=== PATIENT | female | born 1930 | race Caucasian/White ===

== ENCOUNTER 2017-02-19 22:57 | Inpatient (IN) | payer MEDICARE, OTHER ==
[~2017-02-19] VITALS: Ht 172.7 cm; Wt 70.8 kg
--- NOTE | 2017-02-19 23:45 | NUR ---
MS RN NOTES: RECEIVED PATIENT FROM [facility] VIA GURNEY FROM collections specialist. 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 PICTURES WERE TAKEN AND PUT IN CHART. PT A/O X4. PT KEPT CLEAN, DRY, AND COMFORTABLE. MEPILEX WAS CHANGED. DIAPER WAS CHANGED. PT HAS IV ON RIGHT AC #20. IV PATENT AND INTACT. BED IN LOCKED, LOWEST POSITION, AND SIDE RAILS X2 UP.
[2017-02-20] MEDS ORDERED: ALBU8.5H2 INH (01:12)
[2017-02-20] MEDS ORDERED: POTA20TA83 PO (01:12)
[2017-02-20] MEDS ORDERED: LOSA25TA3 PO (01:12)
[2017-02-20] MEDS ORDERED: OMEP40CA37 PO (01:12)
[2017-02-20] MEDS ORDERED: ATOR40TA PO (01:12)
[2017-02-20] MEDS ORDERED: PRAM0.253 PO (01:12)
[2017-02-20] MEDS ORDERED: FURO-144 PO (01:12)
[2017-02-20] MEDS ORDERED: FOLI1TAB16 PO (01:12)
[2017-02-20] MEDS ORDERED: NORT50CA PO (01:12)
[2017-02-20] MEDS ORDERED: ALEN70TA3 PO (01:12)
[2017-02-20] MEDS ORDERED: TEMA15CA PO (01:12)
[2017-02-20] MEDS ORDERED: LOPE-156 PO (01:12)
[2017-02-20] MEDS ORDERED: FERR-58 PO (01:12)
[2017-02-20] MEDS ORDERED: CALC500T3 PO (01:12)
[2017-02-20] MEDS ORDERED: ASPI81TA2 PO (01:12)
[2017-02-20] MEDS ORDERED: GABA-534 PO (01:12)
[2017-02-20] MEDS ORDERED: CARV3.12 PO (01:12)
[2017-02-20] MEDS: NORTRIPTYLINE HCL 25 MG CAPSULE PO SCH ×3 (01:53→22:47)
[2017-02-20] MEDS ORDERED: ACETAMINOPHEN 325 MG TABLET PO PRN (02:00)
[2017-02-20] MEDS ORDERED: Z GUARD REMEDY 2 OZ OINT TP PRN (02:00)
[2017-02-20] MEDS ORDERED: MAGNESIUM HYDROXIDE 30 ML UDC PO PRN (02:00)
[2017-02-20] MEDS ORDERED: MAG HYDROX/AL HYDROX/SIMETH 30 ML UDC PO PRN (02:00)
[2017-02-20] MEDS ORDERED: ONDANSETRON HCL/PF 4 MG/2 ML VIAL IVP PRN (02:00)
[2017-02-20] MEDS ORDERED: ZOLPIDEM TARTRATE 5 MG TABLET PO PRN (02:00)
[2017-02-20] MEDS ORDERED: CEFTRIAXONE 1 G VIAL ONE (02:06)
[2017-02-20] MEDS ORDERED: IV D5W 50 ML IV ONE (02:07)
[2017-02-20] MEDS ORDERED: SECONDARY IV SET 1 EA INFUS.SET MC ONE ×2 (02:08→03:46)
[2017-02-20] MEDS ORDERED: IV SET PRIMARY PUMP SET 1 EA INFUS.SET MC ONE (02:09)
[2017-02-20] MEDS: TEMAZEPAM 15 MG CAPSULE PO SCH ×2 (02:16→22:00)
[2017-02-20] MEDS ORDERED: IV NS 0.9% 250 ML IV ONE (02:33)
[2017-02-20] MEDS: CEFTRIAXONE 1 G in IV D5W 50 ML IV SCH (02:44)
[2017-02-20] MEDS ORDERED: VANCOMYCIN 1 GM VIAL ONE (03:25)
[2017-02-20] MEDS ORDERED: IV D5W 250 ML IV ONE (03:26)
[2017-02-20] MEDS ORDERED: HYDROCODONE/APAP 5/325MG 1 EACH TABLET ONE (03:27)
[2017-02-20] MEDS ORDERED: VANCOMYCIN 1 GM in IV D5W 250 ML IV ONE (03:30)
[2017-02-20] MEDS: HYDROCODONE/APAP 5/325MG 1 EACH TABLET PO PRN ×2 (03:51→10:02)
--- NOTE | 2017-02-20 03:51 | NUR ---
MS RN NOTES: PATIENT COMPLAINED OF R FOOT PAIN. PATIENT RECEIVED NORCO 5/325MG PO. WILL CONTINUE TO MONITOR PT.
[2017-02-20 05:37] VITALS: BP 136/74
--- NOTE | 2017-02-20 06:35 | NUR ---
MS RN CLOSING NOTES: PATIENT IN BED ASLEEP. PT KEPT CLEAN, DRY, AND COMFORTABLE. PT HAS IV ON RAC #20 AND IS PATENT AND INTACT. PATIENT KEPT IN LOWEST, LOCKED POSITION, AND SIDE RAILS X2 UP. CALL LIGHT WITHIN PT REACH. WILL ENDORSE TO DAY SHIFT NURSE.
[2017-02-20 06:52] LABS: BASOPHILS % (AUTO) 0.4 % (0.0-2.0); EOSINOPHILS # (AUTO) 0.3 /CMM (0.0-0.7); EOSINOPHILS % (AUTO) 4.6 % (0.0-6.0); HEMATOCRIT 32 % (33-45); HEMOGLOBIN 10.3 g/dL (11.5-14.8); LYMPHOCYTES # (AUTO) 1.5 /CMM (0.8-4.8); MEAN CORPUSCULAR HEMOGLOBIN 31 PG (26.0-33.0); MEAN CORPUSCULAR HGB CONC 33 g/dl (31.0-36.0); MEAN CORPUSCULAR VOLUME 95 fL (82-100); MONOCYTES # (AUTO) 1.3 /CMM (0.1-1.30); MONOCYTES % (AUTO) 17.6 % (2.0-12.0); NEUTROPHILS # (AUTO) 4.2 /CMM (1.8-8.9); NEUTROPHILS % (AUTO) 57.4 % (43.0-81.0); PLATELET COUNT (AUTO) 220 /CMM (150-450); RDW COEFFICIENT OF VARIATION 16.4 (11.5-15.0); RED BLOOD CELL COUNT(AUTO) 3.31 MIL/uL (4.0-5.2); WHITE BLOOD COUNT (AUTO) 7.4 K/uL (4.3-11.0)
[2017-02-20 07:08] LABS: CALCIUM, SERUM 8.9 mg/dL (8.5-10.1); CREATININE 0.9 mg/dL (0.6-1.3); PHOSPHORUS 2.9 mg/dL (2.5-4.9); POTASSIUM 4.1 mmol/L (3.5-5.1)
[2017-02-20 08:00] VITALS: BP 128/77
--- NOTE | 2017-02-20 08:13 | NUR ---
RN AM NOTES RECEIVED PATIENT IN BED ASLEEP, BUT EASILY AROUSABLE. PATIENT STATES "LEAVE ME ALONE, I DID NOT GET TO SLEEP UNTIL 4 AM." PULLED OUT IV, REFUSES AM CARE, REFUSES PUTTING BACK OF PIV, REFUSES WOUND CARE NURSE CONSULT. WILL CONTINUE TO MONITOR AND TRY TO OFFER CARE LATER THIS AM WHEN PATIENT IS MORE AWAKE.
[2017-02-20 08:37] LABS: BAND % (MANUAL) 2 % (0.0-5.0); EOSINOPHILS % (MANUAL) 5 % (0-4); LYMPHOCYTES % (MANUAL) 21 % (16-48); MONOCYTES % (MANUAL) 3 % (0-11.0); NEUTROPHILS % (MANUAL) 69 (42-76); PLATELET ESTIMATE ADEQUATE
[2017-02-20 08:38] LABS: ANISOCYTOSIS 1+
[2017-02-20] MEDS ORDERED: ALENDRONATE 70 MG TABLET PO SCH (09:00)
[2017-02-20] MEDS ORDERED: ALBUTEROL SULFATE 8 GM HFA.AER.AD IH SCH (09:00)
[2017-02-20] MEDS ORDERED: FEE PK DOSING 1 MIN EA MC ONE (09:05)
--- NOTE | 2017-02-20 11:47 | NUR ---
WOUND CARE CONSULT: PATIENT SEEN AND SKIN ASSESSMENT DONE. PATIENT ALERT, ORIENTED, UNABLE TO TURN AND REPOSITION SELF WITHOUT ASSIST AND PROMPTING, INCONTINENT, LANETTE 13, FIRST STEP MATTRESS ORDERED BY MD. SEE TODAY'S SKIN ASSESSMENT IN PCS ALONG WITH RECOMMENDATIONS. RECOMMEND MOISTURE PROTECTION WITH Z GUARD ORDERED. TURN AND REPOSITION EVERY 2 HRS PATIENT CONDITION PERMITS, OFFLOAD BOTH HEELS. ALL DISCUSSED WITH NURSING STAFF. MD IN AGREEMENT WITH PLAN OF CARE. Addendum: 02/20/17 at 1155 by FLAVIA SPICER WNDNU Amended: Links added.
[2017-02-20] MEDS: FOLIC ACID 1 MG TABLET PO SCH ×3 (12:26→17:06)
[2017-02-20] MEDS: PRAMIPEXOLE DI-HCL 0.25 MG TABLET PO SCH (12:26)
[2017-02-20] MEDS: ATORVASTATIN 40 MG TABLET PO SCH (12:26)
[2017-02-20] MEDS: GABAPENTIN 300 MG CAPSULE PO SCH ×3 (12:26→17:06)
[2017-02-20] MEDS: ASPIRIN 81 MG TAB.CHEW PO SCH (12:26)
[2017-02-20] MEDS: POTASSIUM CHLORIDE 20 MEQ TAB.PRT.SR PO SCH ×2 (12:26→17:05)
[2017-02-20] MEDS: FERROUS SULFATE (325 MG) 325 MG/TAB TABLET PO SCH ×2 (12:26→17:05)
[2017-02-20] MEDS: LOSARTAN POTASSIUM 25 MG TABLET PO SCH (12:27)
[2017-02-20] MEDS: PANTOPRAZOLE 40 MG TABLET.DR PO SCH (12:27)
[2017-02-20] MEDS: CALCIUM CARBONATE (1250) 500 MG TABLET PO SCH (12:27)
[2017-02-20] MEDS: CARVEDILOL 3.125 MG TABLET PO SCH ×2 (12:28→17:06)
[2017-02-20] MEDS ORDERED: METHADONE HCL 10 MG TABLET PO SCH (14:00)
--- NOTE | 2017-02-20 14:00 | NUR ---
METHADONE GIVEN ORDERED. PATIENT WRISTBAND WET, NOT SCANNING. TRIED TWICE.
[2017-02-20 16:00] VITALS: BP 124/78
[2017-02-20] MEDS ORDERED: LIDOCAINE 1%-EPI 1:100,000 20 ML VIAL TP ONE (16:00)
[2017-02-20] MEDS ORDERED: SILVER NITRATE APPLICATOR 1 EA BOX TP ONE (16:00)
[2017-02-20] MEDS: FUROSEMIDE 40 MG TABLET PO SCH (17:06)
--- NOTE | 2017-02-20 18:37 | NUR ---
RN PM NOTES PATIENT ABLE TO TOLERATE TRANSFERRING FROM CHAIR WITH ASSISTANCE, AND REPOSITIONING IN BED WITH ASSISTANCE. CONSENT FOR WOUND DEBRIDEMENT SIGNED AND IN CHART. PATIENT IN BED RESTING, BUT AROUSABLE, ALERT AND ORIENTED X4. WOUND CARE RENDERED. ALL NEEDS MET. WILL ENDORSE TO NEXT SHIFT.
--- NOTE | 2017-02-20 19:50 | NUR ---
RN OPENING NOTES RECEIVED REPORT FROM PAULNDAHMET RNHOPE. FOUND Pt SLEEPING IN BED. NO S/S OF ACUTE DISTRESS OR SOB NOTED. EVEN CHEST RISE AND FALL. NO SIGNS OF PAIN NOTED. IV ACCESS ON LFA #22G, SL. SAFETY MEASURES IN PLACE. BED LOW, LOCKED, HOB ELEVATED, SIDE RAILS UP, CALL LIGHT AND BEDSIDE TABLE WITHIN REACH. WILL CONTINUE TO MONITOR Pt THROUGHOUT THE NIGHT FOR SAFETY.
[2017-02-20 21:04] VITALS: BP 108/59
[2017-02-20] MEDS: VANCOMYCIN 1 GM in IV D5W 250 ML IV SCH (22:41)
[2017-02-20] MEDS: METHADONE HCL 10 MG TABLET PO SCH (22:46)
--- NOTE | 2017-02-21 | NUR ---
RN NOTES LFA #22G IV ACCESS INFILTRATED. STARED A NEW IV ACCESS ON R WRIST #22G, FLUSHING WELL.
[2017-02-21] MEDS ORDERED: SECONDARY IV SET 1 EA INFUS.SET MC ONE (02:29)
[2017-02-21] MEDS: CEFTRIAXONE 1 G in IV D5W 50 ML IV SCH (02:58)
--- NOTE | 2017-02-21 06:55 | NUR ---
RN CLOSING NOTES NO SIGNIFICANT CHANGES DURING THE SHIFT. NO S/S OF ACUTE DISTRESS OR SOB NOTED. ALL NEEDS MET AND ATTENDED TO. SAFETY MEASURES IN PLACE. WILL ENDORSE TO DAYSHIFT RN, FOR Pt's OLEGARIO
--- NOTE | 2017-02-21 07:30 | NUR ---
RECEIVED PT. ALERT AND ORIENTED X 4,COOK SAUCE LIGHT RENUKA.
[2017-02-21 07:59] LABS: BASOPHILS % (AUTO) 0.3 % (0.0-2.0); EOSINOPHILS # (AUTO) 0.4 /CMM (0.0-0.7); EOSINOPHILS % (AUTO) 5.1 % (0.0-6.0); HEMATOCRIT 31 % (33-45); HEMOGLOBIN 10.1 g/dL (11.5-14.8); LYMPHOCYTES # (AUTO) 1.2 /CMM (0.8-4.8); LYMPHOCYTES % (AUTO) 17.3 % (20.0-44.0); MEAN CORPUSCULAR HEMOGLOBIN 31 PG (26.0-33.0); MEAN CORPUSCULAR HGB CONC 32 g/dl (31.0-36.0); MEAN CORPUSCULAR VOLUME 96 fL (82-100); MONOCYTES % (AUTO) 14.8 % (2.0-12.0); NEUTROPHILS # (AUTO) 4.4 /CMM (1.8-8.9); NEUTROPHILS % (AUTO) 62.5 % (43.0-81.0); PLATELET COUNT (AUTO) 221 /CMM (150-450); RDW COEFFICIENT OF VARIATION 16.5 (11.5-15.0); RED BLOOD CELL COUNT(AUTO) 3.27 MIL/uL (4.0-5.2); WHITE BLOOD COUNT (AUTO) 7.1 K/uL (4.3-11.0)
[2017-02-21 08:00] VITALS: BP 150/80
[2017-02-21 08:15] LABS: CALCIUM, SERUM 9.1 mg/dL (8.5-10.1); CREATININE 0.9 mg/dL (0.6-1.3); PHOSPHORUS 3.3 mg/dL (2.5-4.9); POTASSIUM 4.8 mmol/L (3.5-5.1)
[2017-02-21] MEDS: NYSTATIN TOP POWDER 15 GM BOTTLE TP SCH ×2 (09:00→18:14)
[2017-02-21] MEDS: HYDROGEL DRESSING 90 GM TUBE TP SCH (09:00)
[2017-02-21] MEDS: FUROSEMIDE 40 MG TABLET PO SCH ×2 (09:06→18:12)
[2017-02-21] MEDS: FOLIC ACID 1 MG TABLET PO SCH ×3 (09:06→18:13)
[2017-02-21] MEDS: CARVEDILOL 3.125 MG TABLET PO SCH ×2 (09:07→17:00)
[2017-02-21] MEDS: LOSARTAN POTASSIUM 25 MG TABLET PO SCH (09:07)
[2017-02-21] MEDS: ASPIRIN 81 MG TAB.CHEW PO SCH (09:07)
[2017-02-21] MEDS: CALCIUM CARBONATE (1250) 500 MG TABLET PO SCH (09:07)
[2017-02-21] MEDS: ATORVASTATIN 40 MG TABLET PO SCH (09:07)
[2017-02-21] MEDS: POTASSIUM CHLORIDE 20 MEQ TAB.PRT.SR PO SCH ×2 (09:07→18:12)
[2017-02-21] MEDS: METHADONE HCL 10 MG TABLET PO SCH ×3 (09:11→18:12)
[2017-02-21] MEDS: FERROUS SULFATE (325 MG) 325 MG/TAB TABLET PO SCH ×2 (09:11→18:13)
[2017-02-21] MEDS: PRAMIPEXOLE DI-HCL 0.25 MG TABLET PO SCH (09:12)
[2017-02-21] MEDS: GABAPENTIN 300 MG CAPSULE PO SCH ×3 (09:12→18:11)
[2017-02-21] MEDS: PANTOPRAZOLE 40 MG TABLET.DR PO SCH (09:14)
--- NOTE | 2017-02-21 10:40 | NUR ---
DIRECTOR OF CREATIVE SERVICES IN AND DEBRIDEMENT DONE ON BUTTOCKS.PT. TOLERATED WELL.
[2017-02-21] MEDS ORDERED: MENTHOL/CETYLPYRD (CEPACOL) 1 LOZ LOZENGE PO PRN (11:00)
--- NOTE | 2017-02-21 14:30 | NUR ---
UP IN CHAIR AT BEDSIDE,PTX IN TO SEE PT.
[2017-02-21 16:00] VITALS: BP 105/71
[2017-02-21] MEDS: VANCOMYCIN 1 GM in IV D5W 250 ML IV SCH (17:10)
--- NOTE | 2017-02-21 18:00 | NUR ---
DOING WELL WITH METHADONE PAIN MED,
--- NOTE | 2017-02-21 19:30 | NUR ---
RN OPEN NOTES RECEIVED PATIENT AWAKE IN BED. A/O X3. NO SIGNS OF DISTRESS OR DISCOMFORT. BREATHING EVEN AND UNLABORED. ON 2 LPM O2 VIA NC. IV ACCESS IN RIGHT WRIST, PATENT AND INTACT, NO SIGNS OF REDNESS OR INFILTRATION. BED IN LOW LOCKED POSITION WITH SIDE RAILS X2. CALL LIGHT WITHIN REACH. WILL CONTINUE TO MONITOR.
[2017-02-21 20:00] VITALS: BP 115/80
[2017-02-21] MEDS: TEMAZEPAM 15 MG CAPSULE PO SCH (22:20)
[2017-02-22] MEDS: CEFTRIAXONE 1 G in IV D5W 50 ML IV SCH (01:55)
--- NOTE | 2017-02-22 07:15 | NUR ---
RN CLOSING NOTES PATIENT AWAKE IN BED. A/O X3. NO SIGNS OF DISTRESS OR DISCOMFORT. BREATHING EVEN AND UNLABORED. ON 2 LPM O2 VIA NC. IV ACCESS IN RIGHT WRIST, PATENT AND INTACT, NO SIGNS OF REDNESS OR INFILTRATION. PATIENT KEPT CLEAN DRY AND COMFORTABLE. ALL NEDS MET. REPOSITIONED Q2H. NO SIGNIFICANT CHANGES THROUGH THE NIGHT. BED IN LOW LOCKED POSITION WITH SIDE RAILS X2. CALL LIGHT WITHIN REACH. ENDORSED TO AM SHIFT FOR OLEGARIO.
--- NOTE | 2017-02-22 07:36 | NUR ---
AM RN NOTE Received patient sleeping comfortably in her bed. Resp even and non-labored. IV site intact and patent. Will continue to monitor. Bed in low locked position.
[2017-02-22] MEDS: PANTOPRAZOLE 40 MG TABLET.DR PO SCH (09:00)
[2017-02-22] MEDS: ATORVASTATIN 40 MG TABLET PO SCH (09:00)
[2017-02-22] MEDS: FOLIC ACID 1 MG TABLET PO SCH ×3 (09:00→16:21)
[2017-02-22] MEDS: ASPIRIN 81 MG TAB.CHEW PO SCH (09:00)
[2017-02-22] MEDS: FERROUS SULFATE (325 MG) 325 MG/TAB TABLET PO SCH ×2 (09:00→16:20)
[2017-02-22] MEDS: PRAMIPEXOLE DI-HCL 0.25 MG TABLET PO SCH (09:01)
[2017-02-22] MEDS: GABAPENTIN 300 MG CAPSULE PO SCH ×3 (09:01→16:21)
[2017-02-22] MEDS: CALCIUM CARBONATE (1250) 500 MG TABLET PO SCH (09:01)
[2017-02-22] MEDS: METHADONE HCL 10 MG TABLET PO SCH ×3 (09:02→16:21)
[2017-02-22 10:00] VITALS: BP 115/63
[2017-02-22 10:11] LABS: CALCIUM, SERUM 9.4 mg/dL (8.5-10.1); POTASSIUM 4.2 mmol/L (3.5-5.1)
[2017-02-22] MEDS: FUROSEMIDE 40 MG TABLET PO SCH ×2 (10:16→16:20)
[2017-02-22] MEDS: CARVEDILOL 3.125 MG TABLET PO SCH ×2 (10:16→16:21)
[2017-02-22] MEDS: POTASSIUM CHLORIDE 20 MEQ TAB.PRT.SR PO SCH ×2 (10:16→16:20)
[2017-02-22] MEDS: HYDROGEL DRESSING 90 GM TUBE TP SCH (10:17)
[2017-02-22] MEDS: NYSTATIN TOP POWDER 15 GM BOTTLE TP SCH ×2 (10:17→16:22)
[2017-02-22] MEDS: LOSARTAN POTASSIUM 25 MG TABLET PO SCH (10:17)
--- NOTE | 2017-02-22 11:28 | NUR ---
AM RN NOTE Patient c/o occ non-productive cough, notified Dr. Berg with new order for Robitussin.
[2017-02-22] MEDS ORDERED: GUAIFENESIN/CODEINE 10 ML UDC PO PRN (11:30)
--- NOTE | 2017-02-22 11:33 | NUR ---
ANDRE RN NOTE Called Labs and spoke with Doc to clarify that Vanco trough results still pending. Per Doc, he will F/U. Pharmacy ([facility]) made aware. Addendum: 02/22/17 at 1136 by JACQUIE GARCIA RN Held vanco dose until results available.
[2017-02-22] MEDS: VANCOMYCIN 1 GM in IV D5W 250 ML IV SCH (12:15)
[2017-02-22] MEDS: GUAIFENESIN 300 MG/15 ML UDC PO PRN (12:15)
[2017-02-22 16:00] VITALS: BP 102/58
[2017-02-22] MEDS: ALBUTEROL FS 2.5 MG/3 ML VIAL.NEB NEB SCH ×2 (16:44→16:46)
--- NOTE | 2017-02-22 18:39 | NUR ---
AM RN NOTE Patient lying in her bed, no acute distress noted. Repositioned. Will endorse care to next shift.
[2017-02-22 19:00] VITALS: BP 104/62
--- NOTE | 2017-02-22 19:20 | NUR ---
RN OPEN NOTES RECEIVED PATIENT AWAKE IN BED. A/O X3. NO SIGNS OF DISTRESS OR DISCOMFORT. BREATHING EVEN AND UNLABORED. ON 2 LPM O2 VIA NC. IV ACCESS IN RIGHT WRIST, PATENT AND INTACT, NO SIGNS OF REDNESS OR INFILTRATION. DENIES ANY PAIN AT THIS TIME. BED IN LOW LOCKED POSITION WITH SIDE RAILS X2. CALL LIGHT WITHIN REACH. WILL CONTINUE TO MONITOR.
[2017-02-22 20:00] VITALS: BP 104/62
[2017-02-22] MEDS: NORTRIPTYLINE HCL 25 MG CAPSULE PO SCH (22:25)
[2017-02-22] MEDS: TEMAZEPAM 15 MG CAPSULE PO SCH (22:27)
[2017-02-23] MEDS: CEFTRIAXONE 1 G in IV D5W 50 ML IV SCH (01:37)
--- NOTE | 2017-02-23 02:45 | NUR ---
RN NOTES PERFORMED ORDERED WOUND TREATMENT. PATIENT TOLERATED WELL. WILL CONTINUE TO MONITOR.
--- NOTE | 2017-02-23 07:07 | NUR ---
RN CLOSING NOTES PATIENT RESTING IN BED. A/O X3. NO SIGNS OF DISTRESS OR DISCOMFORT. BREATHING EVEN AND UNLABORED. ON 2 LPM O2 VIA NC. IV ACCESS IN RIGHT WRIST, PATENT AND INTACT, NO SIGNS OF REDNESS OR INFILTRATION. DENIES ANY PAIN AT THIS TIME. NO SIGNIFICANT CHANGES THROUGH THE NIGHT. PATIENT KEPT CLEAN DRY AND COMFORTABLE. ALL NEEDS MET. BED IN LOW LOCKED POSITION WITH SIDE RAILS X2. CALL LIGHT WITHIN REACH. WILL ENDORSE TO AM SHIFT FOR OLEGARIO.
--- NOTE | 2017-02-23 07:35 | NUR ---
AM RN NOTE Received patient sleeping comfortably in her bed. On O2 2L/min via NC. Resp even and non-labored. No acute distress noted. Bed in low locked position. Will continue to monitor.
[2017-02-23 07:45] LABS: BASOPHILS % (AUTO) 0.1 % (0.0-2.0); EOSINOPHILS # (AUTO) 0.4 /CMM (0.0-0.7); EOSINOPHILS % (AUTO) 5.1 % (0.0-6.0); HEMATOCRIT 32 % (33-45); HEMOGLOBIN 10.7 g/dL (11.5-14.8); LYMPHOCYTES # (AUTO) 1.2 /CMM (0.8-4.8); LYMPHOCYTES % (AUTO) 16.2 % (20.0-44.0); MEAN CORPUSCULAR HEMOGLOBIN 31 PG (26.0-33.0); MEAN CORPUSCULAR HGB CONC 33 g/dl (31.0-36.0); MEAN CORPUSCULAR VOLUME 95 fL (82-100); MONOCYTES # (AUTO) 1.1 /CMM (0.1-1.30); MONOCYTES % (AUTO) 14.4 % (2.0-12.0); NEUTROPHILS # (AUTO) 4.8 /CMM (1.8-8.9); NEUTROPHILS % (AUTO) 64.2 % (43.0-81.0); PLATELET COUNT (AUTO) 237 /CMM (150-450); RDW COEFFICIENT OF VARIATION 16.3 (11.5-15.0); RED BLOOD CELL COUNT(AUTO) 3.41 MIL/uL (4.0-5.2); WHITE BLOOD COUNT (AUTO) 7.5 K/uL (4.3-11.0)
[2017-02-23 08:00] VITALS: BP 125/64
[2017-02-23 08:13] LABS: CALCIUM, SERUM 9.2 mg/dL (8.5-10.1); CREATININE 1.1 mg/dL (0.6-1.3); POTASSIUM 4.6 mmol/L (3.5-5.1)
[2017-02-23] MEDS: FERROUS SULFATE (325 MG) 325 MG/TAB TABLET PO SCH ×3 (09:00→17:49)
[2017-02-23] MEDS: CALCIUM CARBONATE (1250) 500 MG TABLET PO SCH ×2 (09:00→09:22)
[2017-02-23] MEDS: POTASSIUM CHLORIDE 20 MEQ TAB.PRT.SR PO SCH ×2 (09:21→17:50)
[2017-02-23] MEDS: FUROSEMIDE 40 MG TABLET PO SCH ×2 (09:21→17:00)
[2017-02-23] MEDS: ASPIRIN 81 MG TAB.CHEW PO SCH (09:22)
[2017-02-23] MEDS: PANTOPRAZOLE 40 MG TABLET.DR PO SCH (09:22)
[2017-02-23] MEDS: ATORVASTATIN 40 MG TABLET PO SCH (09:22)
[2017-02-23] MEDS: METHADONE HCL 10 MG TABLET PO SCH ×3 (09:22→17:50)
[2017-02-23] MEDS: CARVEDILOL 3.125 MG TABLET PO SCH ×2 (09:23→17:50)
[2017-02-23] MEDS: LOSARTAN POTASSIUM 25 MG TABLET PO SCH (09:23)
[2017-02-23] MEDS: FOLIC ACID 1 MG TABLET PO SCH ×3 (09:23→17:49)
[2017-02-23] MEDS: GABAPENTIN 300 MG CAPSULE PO SCH ×3 (09:23→17:49)
[2017-02-23] MEDS: PRAMIPEXOLE DI-HCL 0.25 MG TABLET PO SCH (09:23)
[2017-02-23] MEDS: HYDROGEL DRESSING 90 GM TUBE TP SCH (09:25)
[2017-02-23] MEDS: NYSTATIN TOP POWDER 15 GM BOTTLE TP SCH ×2 (09:25→17:51)
[2017-02-23] MEDS: GUAIFENESIN 300 MG/15 ML UDC PO PRN (09:35)
[2017-02-23] MEDS: ALBUTEROL FS 2.5 MG/3 ML VIAL.NEB NEB SCH (09:43)
[2017-02-23] MEDS ORDERED: VANCOMYCIN 1 GM in IV D5W 250 ML IV SCH (12:00)
--- NOTE | 2017-02-23 12:30 | NUR ---
AM RN NOTE Vanco trough 21 held routine dose at 12 noon, Suraj (Pharmacist) made aware.
[2017-02-23 16:00] VITALS: BP 101/61
[2017-02-23] MEDS: DAKINS QUARTER STRENGTH (0.125%) 480 ML BOTTLE TOP SCH (17:49)
--- NOTE | 2017-02-23 18:28 | NUR ---
AM RN NOTE Patient awake lying in her bed, no acute distress noted. Will endorse care to next shift.
[2017-02-23 20:00] VITALS: BP 107/64
--- NOTE | 2017-02-23 20:02 | NUR ---
RN OPEN NOTES PATIENT RESTING IN BED EASILY AROUSABLE. A/O X3. NO SIGNS OF DISTRESS OR DISCOMFORT. BREATHING EVEN AND UNLABORED. ON 2 LPM O2 VIA NC. IV ACCESS IN RIGHT WRIST, PATENT AND INTACT, NO SIGNS OF REDNESS OR INFILTRATION. DENIES ANY PAIN AT THIS TIME. BED IN LOW LOCKED POSITION WITH SIDE RAILS X2. CALL LIGHT WITHIN REACH. WILL CONTINUE TO MONITOR.
--- NOTE | 2017-02-23 20:59 | NUR ---
RN NOTES SPOKE WITH CONCETTA IN LAB. OK TO GIVE DUE VANCO. AWARE OF TROUGH 21. DOSE WAS CHANGED. WILL CONTINUE TO MONITOR.
[2017-02-23] MEDS: NORTRIPTYLINE HCL 25 MG CAPSULE PO SCH (21:36)
[2017-02-23] MEDS: VANCOMYCIN 0.75 GM in IV D5W 250 ML IV SCH (21:36)
[2017-02-23] MEDS: TEMAZEPAM 15 MG CAPSULE PO SCH (21:37)
[2017-02-23] MEDS: MUPIROCIN OINT 2% 22 GM TUBE SCH (21:49)
[2017-02-24] MEDS ORDERED: IV SET PRIMARY PUMP SET 1 EA INFUS.SET MC ONE (01:27)
[2017-02-24] MEDS: CEFTRIAXONE 1 G in IV D5W 50 ML IV SCH (01:44)
[2017-02-24] MEDS ORDERED: IV NS 0.9% 250 ML IV ONE (01:44)
--- NOTE | 2017-02-24 07:30 | NUR ---
RN NOTES PATIENT RESTING IN BED EASILY AROUSABLE. A/O X3. NO SIGNS OF DISTRESS OR DISCOMFORT. BREATHING EVEN AND UNLABORED. ON 2 LPM O2 VIA NC. IV ACCESS IN RIGHT WRIST, PATENT AND INTACT, NO SIGNS OF REDNESS OR INFILTRATION. DENIES ANY PAIN AT THIS TIME. BED IN LOW LOCKED POSITION WITH SIDE RAILS X2 FOR SAFETY. CALL LIGHT WITHIN REACH. WILL CONTINUE TO MONITOR.
--- NOTE | 2017-02-24 07:35 | NUR ---
RN CLOSING NOTES PATIENT AWAKE IN BED. A/O X3. NO SIGNS OF DISTRESS OR DISCOMFORT. BREATHING EVEN AND UNLABORED. ON 2 LPM O2 VIA NC. IV ACCESS IN RIGHT FA, PATENT AND INTACT, NO SIGNS OF REDNESS OR INFILTRATION. DENIES ANY PAIN AT THIS TIME. ALL NEEDS MET. NO SIGNIFICANT CHANGES THROUGH THE NIGHT. PATIENT KEPT CLEAN DRY AND COMFORTABLE. BED IN LOW LOCKED POSITION WITH SIDE RAILS X2. CALL LIGHT WITHIN REACH. ENDORSED TO AM SHIFT FOR OLEGARIO.
[2017-02-24] MEDS: ALBUTEROL FS 2.5 MG/3 ML VIAL.NEB NEB SCH ×2 (07:39→09:00)
[2017-02-24 07:46] LABS: CALCIUM, SERUM 9.6 mg/dL (8.5-10.1); CREATININE 1.2 mg/dL (0.6-1.3)
[2017-02-24 08:00] VITALS: BP 118/71
[2017-02-24] MEDS: POTASSIUM CHLORIDE 20 MEQ TAB.PRT.SR PO SCH ×2 (08:56→17:24)
[2017-02-24] MEDS: PRAMIPEXOLE DI-HCL 0.25 MG TABLET PO SCH (08:56)
[2017-02-24] MEDS: GABAPENTIN 300 MG CAPSULE PO SCH ×3 (08:56→17:07)
[2017-02-24] MEDS: PANTOPRAZOLE 40 MG TABLET.DR PO SCH (08:56)
[2017-02-24] MEDS: FERROUS SULFATE (325 MG) 325 MG/TAB TABLET PO SCH ×2 (08:56→17:08)
[2017-02-24] MEDS: METHADONE HCL 10 MG TABLET PO SCH ×3 (08:56→17:09)
[2017-02-24] MEDS: ASPIRIN 81 MG TAB.CHEW PO SCH (08:57)
[2017-02-24] MEDS: FOLIC ACID 1 MG TABLET PO SCH ×3 (08:57→17:08)
[2017-02-24] MEDS: FUROSEMIDE 40 MG TABLET PO SCH ×2 (08:57→17:07)
[2017-02-24] MEDS: ATORVASTATIN 40 MG TABLET PO SCH (08:58)
[2017-02-24] MEDS: CALCIUM CARBONATE (1250) 500 MG TABLET PO SCH (08:58)
[2017-02-24] MEDS: LOSARTAN POTASSIUM 25 MG TABLET PO SCH (08:58)
[2017-02-24] MEDS: CARVEDILOL 3.125 MG TABLET PO SCH ×2 (09:00→17:00)
[2017-02-24] MEDS: DAKINS QUARTER STRENGTH (0.125%) 480 ML BOTTLE TOP SCH (09:22)
[2017-02-24] MEDS: MUPIROCIN OINT 2% 22 GM TUBE SCH ×2 (09:22→21:35)
[2017-02-24] MEDS: NYSTATIN TOP POWDER 15 GM BOTTLE TP SCH ×2 (09:22→17:26)
[2017-02-24 16:00] VITALS: BP 109/51
[2017-02-24] MEDS ORDERED: METHADONE HCL 10 MG TABLET PO SCH ×2 (17:21→22:00)
--- NOTE | 2017-02-24 19:30 | NUR ---
RN NOTE; RECEIVED PT IN BED DOZING INTERMITTENTLY. BREATHING EVENLY. REFUSED NC FOR SUPPLEMENTAL O2. NO SOB. NO DISTRESS. SKIN WARM AND DRY. W/ C/O NECK PAIN. WARM TOWEL APPLIED AND ASSISTED W/ REPOSITIONING. NEEDS ATTENDED. BED LOW LOCKED . CALL LIGHT WITHIN REACH. WILL CONT TO MONITOR
--- NOTE | 2017-02-24 19:35 | NUR ---
RN NOTES CLARIFIED ORDERS OF MEHTADONE WITH [employer]BRASIVE GRADER HELPER TO ADMINISTER Q8H STARTING 02/25/17 AT 0600 WILL CONTINUE TO MONITOR
--- NOTE | 2017-02-24 19:36 | NUR ---
RN NOTES PATIENT RESTING IN BED EASILY AROUSABLE. A/O X2-3. NO SIGNS OF DISTRESS OR DISCOMFORT. BREATHING EVEN AND UNLABORED. ON 2 LPM O2 VIA NC. IV ACCESS IN RIGHT WRIST, PATENT AND INTACT, NO SIGNS OF REDNESS OR INFILTRATION. DENIES ANY PAIN AT THIS TIME. BED IN LOW LOCKED POSITION WITH SIDE RAILS X2 FOR SAFETY. CALL LIGHT WITHIN REACH. ENDORSED TO NEXT SHIFT FOR CONTINUITY OF CARE
[2017-02-24 20:00] VITALS: BP 112/66
[2017-02-24 20:34] VITALS: BP 112/66
[2017-02-24] MEDS: VANCOMYCIN 0.75 GM in IV D5W 250 ML IV SCH (21:00)
[2017-02-24] MEDS: NORTRIPTYLINE HCL 25 MG CAPSULE PO SCH (21:33)
[2017-02-24] MEDS: TEMAZEPAM 15 MG CAPSULE PO SCH (21:34)
--- NOTE | 2017-02-24 21:36 | NUR ---
HELD VANCOMYCIN FOR VANCO TROUGH LEVEL OF 21.
[2017-02-24] MEDS ORDERED: ENOXAPARIN SODIUM 40 MG/0.4 ML DISP.SYRIN SQ SCH (22:00)
[2017-02-25] MEDS: CEFTRIAXONE 1 G in IV D5W 50 ML IV SCH (01:37)
[2017-02-25] MEDS: METHADONE HCL 10 MG TABLET PO SCH ×3 (05:48→22:00)
--- NOTE | 2017-02-25 06:30 | NUR ---
RN NOTE; PT IN BED DOZING INTERMITTENTLY. BREATHING EVENLY. NO SOB. NO DISTRESS. SKIN WARM AND DRY. NO ACUTE CHANGES DURING NIGHT, REMAINED STABLE. MEDS GIVEN ORDERED. CLEANED AND DRIED. ASSISTED W/ REPOSITIONING , CALL LIGHT WITHIN REACH. WILL CONT TO MONITOR AND WILL ENDORSE TO AM SHIFT FOR OLEGARIO.
--- NOTE | 2017-02-25 07:35 | NUR ---
RN NOTES PATIENT RESTING IN BED EASILY AROUSABLE. A/O X 2-3. NO SIGNS OF DISTRESS OR DISCOMFORT. BREATHING EVEN AND UNLABORED. ON 2 LPM O2 VIA NC. IV ACCESS IN RIGHT WRIST, PATENT AND INTACT, NO SIGNS OF REDNESS OR INFILTRATION. DENIES ANY PAIN AT THIS TIME. BED IN LOW LOCKED POSITION WITH SIDE RAILS X2 FOR SAFETY. CALL LIGHT WITHIN REACH. WILL CONTINUE TO MONITOR.
[2017-02-25] MEDS: ALBUTEROL FS 2.5 MG/3 ML VIAL.NEB NEB SCH (07:52)
[2017-02-25 08:00] VITALS: BP 119/68
[2017-02-25] MEDS: FOLIC ACID 1 MG TABLET PO SCH ×3 (09:28→16:55)
[2017-02-25] MEDS: PANTOPRAZOLE 40 MG TABLET.DR PO SCH (09:28)
[2017-02-25] MEDS: POTASSIUM CHLORIDE 20 MEQ TAB.PRT.SR PO SCH ×2 (09:28→16:55)
[2017-02-25] MEDS: CALCIUM CARBONATE (1250) 500 MG TABLET PO SCH (09:28)
[2017-02-25] MEDS: FUROSEMIDE 40 MG TABLET PO SCH ×2 (09:28→16:55)
[2017-02-25] MEDS: ATORVASTATIN 40 MG TABLET PO SCH (09:28)
[2017-02-25] MEDS: FERROUS SULFATE (325 MG) 325 MG/TAB TABLET PO SCH ×2 (09:28→16:55)
[2017-02-25] MEDS: ASPIRIN 81 MG TAB.CHEW PO SCH (09:28)
[2017-02-25] MEDS: PRAMIPEXOLE DI-HCL 0.25 MG TABLET PO SCH (09:28)
[2017-02-25] MEDS: GABAPENTIN 300 MG CAPSULE PO SCH ×3 (09:28→16:55)
[2017-02-25] MEDS: CARVEDILOL 3.125 MG TABLET PO SCH ×2 (09:29→17:00)
[2017-02-25] MEDS: LOSARTAN POTASSIUM 25 MG TABLET PO SCH (09:32)
[2017-02-25] MEDS: NYSTATIN TOP POWDER 15 GM BOTTLE TP SCH ×2 (09:32→16:57)
[2017-02-25] MEDS: MUPIROCIN OINT 2% 22 GM TUBE SCH ×2 (09:33→21:40)
[2017-02-25] MEDS: DAKINS QUARTER STRENGTH (0.125%) 480 ML BOTTLE TOP SCH (09:46)
[2017-02-25] MEDS ORDERED: VANCOMYCIN 0.75 GM in IV D5W 250 ML IV SCH (14:00)
[2017-02-25 15:39] LABS: ALBUMIN 2.4 g/dL (3.4-5.0); CALCIUM, SERUM 9.5 mg/dL (8.5-10.1); CREATININE 1.2 mg/dL (0.6-1.3); MAGNESIUM 1.9 mg/dL (1.8-2.4)
--- NOTE | 2017-02-25 15:42 | NUR ---
RN NOTES BLOOD SUGAR NOTED AT 40 MD AWARE WITH ORDERS FOR DEXTROSE , ADMINISTERED ORDERED WILL CONTINUE TO MONITOR
[2017-02-25 15:43] LABS: BASOPHILS % (AUTO) 0.4 % (0.0-2.0); EOSINOPHILS # (AUTO) 0.3 /CMM (0.0-0.7); HEMATOCRIT 36 % (33-45); HEMOGLOBIN 11.3 g/dL (11.5-14.8); LYMPHOCYTES # (AUTO) 0.9 /CMM (0.8-4.8); LYMPHOCYTES % (AUTO) 12.9 % (20.0-44.0); MEAN CORPUSCULAR HEMOGLOBIN 30 PG (26.0-33.0); MEAN CORPUSCULAR HGB CONC 32 g/dl (31.0-36.0); MEAN CORPUSCULAR VOLUME 95 fL (82-100); MONOCYTES # (AUTO) 0.9 /CMM (0.1-1.30); MONOCYTES % (AUTO) 12.8 % (2.0-12.0); NEUTROPHILS # (AUTO) 4.9 /CMM (1.8-8.9); NEUTROPHILS % (AUTO) 69.9 % (43.0-81.0); PLATELET COUNT (AUTO) 243 /CMM (150-450); RDW COEFFICIENT OF VARIATION 16.2 (11.5-15.0); RED BLOOD CELL COUNT(AUTO) 3.77 MIL/uL (4.0-5.2)
[2017-02-25] MEDS ORDERED: DEXTROSE 50%-WATER 50 ML DISP.SYRIN ONE (15:53)
[2017-02-25 16:00] VITALS: BP 101/63
[2017-02-25] MEDS ORDERED: DEXTROSE 50%-WATER 50 ML DISP.SYRIN IVP ONE (16:00)
[2017-02-25] MEDS ORDERED: IV SET PRIMARY PUMP SET 1 EA INFUS.SET MC ONE (17:58)
[2017-02-25] MEDS: BOOST FOOD- BERRY 237 ML BOX PO SCH (18:00)
[2017-02-25] MEDS: IV D5/ 0.9% NACL 1,000 ML IV PRN (18:11)
--- NOTE | 2017-02-25 19:00 | NUR ---
RN NOTES PATIENT RESTING IN BED EASILY AROUSABLE. A/O X 2-3. NO SIGNS OF DISTRESS OR DISCOMFORT. BREATHING EVEN AND UNLABORED. ON 2 LPM O2 VIA NC. IV ACCESS PATENT AND INTACT, NO SIGNS OF REDNESS OR INFILTRATION. DENIES ANY PAIN AT THIS TIME. BED IN LOW LOCKED POSITION WITH SIDE RAILS X2 FOR SAFETY. CALL LIGHT WITHIN REACH. WILL CONTINUE TO MONITOR AND ENDORSE TO NEXT SHIFT FOR CONTINUITY OF CARE
--- NOTE | 2017-02-25 19:15 | NUR ---
RN OPEN NOTES PATIENT AWAKE IN BED. A/O X3. NO SIGNS OF DISTRESS OR DISCOMFORT. BREATHING EVEN AND UNLABORED. ON 2 LPM O2 VIA NC. IV ACCESS IN RIGHT FA WITH D5NS INFUSING, PATENT AND INTACT, NO SIGNS OF REDNESS OR INFILTRATION. DENIES ANY PAIN AT THIS TIME. BED IN LOW LOCKED POSITION WITH SIDE RAILS X2. CALL LIGHT WITHIN REACH. WILL CONTINUE TO MONITOR
[2017-02-25 20:00] VITALS: BP 95/45
--- NOTE | 2017-02-25 21:58 | NUR ---
RN NOTES SPOKE WITH FLORIDALMA GREENE, OK TO GIVE DUE LOVENOX 30MG. AWARE OF SCHEDULED DEBRIDEMENT IN THE AM. WILL CONTINUE TO MONITOR.
[2017-02-25] MEDS: NORTRIPTYLINE HCL 25 MG CAPSULE PO SCH (22:00)
[2017-02-25] MEDS: TEMAZEPAM 15 MG CAPSULE PO SCH (22:00)
[2017-02-25] MEDS: ENOXAPARIN SODIUM 30 MG/0.3 ML DISP.SYRIN SQ SCH (22:01)
--- NOTE | 2017-02-25 22:29 | NUR ---
RN NOTES PATIENT REFUSED SCHEDULED METHADONE, PAMDIOGO AND STIVEN X3, STATES SHE DOES NOT WANT TO TAKE THEM NOW. PATIENT EDUCATION REINFORCED. WILL CONTINUE TO MONITOR.
[2017-02-26] MEDS: CEFTRIAXONE 1 G in IV D5W 50 ML IV SCH (01:10)
[2017-02-26] MEDS ORDERED: SECONDARY IV SET 1 EA INFUS.SET MC ONE ×2 (01:25→09:41)
[2017-02-26] MEDS: TEMAZEPAM 15 MG CAPSULE PO SCH (02:05)
--- NOTE | 2017-02-26 02:05 | NUR ---
RN NOTES ADMINISTERED RESTORIL 15MG FOR INSOMNIA AT PATIENTS REQUEST. WILL CONTINUE TO MONITOR.
[2017-02-26] MEDS: METHADONE HCL 10 MG TABLET PO SCH ×3 (06:00→21:26)
--- NOTE | 2017-02-26 06:30 | NUR ---
RN NOTES PATIENT REFUSED DUE METHADONE X3. PATIENT EDUCATION REINFORCED. WILL CONTINUE TO MONITOR.
--- NOTE | 2017-02-26 07:01 | NUR ---
RN CLOSING NOTES PATIENT RESTING IN BED. A/O X3. NO SIGNS OF DISTRESS OR DISCOMFORT. BREATHING EVEN AND UNLABORED. ON 2 LPM O2 VIA NC. IV ACCESS IN LEFT WRIST WITH D5NS INFUSING, PATENT AND INTACT, NO SIGNS OF REDNESS OR INFILTRATION. DENIES ANY PAIN AT THIS TIME. ALL NEEDS MET. NO SIGNIFICANT CHANGES THROUGH THE NIGHT. PATIENT KEPT CLEAN DRY AND COMFORTABLE. REPOSITIONED Q2H. BED IN LOW LOCKED POSITION WITH SIDE RAILS X2. CALL LIGHT WITHIN REACH. WILL ENDORSE TO AM SHIFT FOR OLEGARIO.
[2017-02-26] MEDS: ALBUTEROL FS 2.5 MG/3 ML VIAL.NEB NEB SCH (07:33)
[2017-02-26 08:00] VITALS: BP 97/51
[2017-02-26 08:02] LABS: BASOPHILS % (AUTO) 0.6 % (0.0-2.0); EOSINOPHILS # (AUTO) 0.3 /CMM (0.0-0.7); EOSINOPHILS % (AUTO) 4.2 % (0.0-6.0); HEMATOCRIT 34 % (33-45); HEMOGLOBIN 11.2 g/dL (11.5-14.8); LYMPHOCYTES # (AUTO) 0.9 /CMM (0.8-4.8); LYMPHOCYTES % (AUTO) 12.6 % (20.0-44.0); MEAN CORPUSCULAR HEMOGLOBIN 31 PG (26.0-33.0); MEAN CORPUSCULAR HGB CONC 33 g/dl (31.0-36.0); MEAN CORPUSCULAR VOLUME 95 fL (82-100); MONOCYTES # (AUTO) 0.9 /CMM (0.1-1.30); MONOCYTES % (AUTO) 13.7 % (2.0-12.0); NEUTROPHILS # (AUTO) 4.7 /CMM (1.8-8.9); NEUTROPHILS % (AUTO) 68.9 % (43.0-81.0); PLATELET COUNT (AUTO) 244 /CMM (150-450); RDW COEFFICIENT OF VARIATION 16.1 (11.5-15.0); WHITE BLOOD COUNT (AUTO) 6.9 K/uL (4.3-11.0)
[2017-02-26 08:32] LABS: CALCIUM, SERUM 9.2 mg/dL (8.5-10.1); CREATININE 1.2 mg/dL (0.6-1.3); PHOSPHORUS 3.7 mg/dL (2.5-4.9); POTASSIUM 4.5 mmol/L (3.5-5.1)
[2017-02-26] MEDS: LOSARTAN POTASSIUM 25 MG TABLET PO SCH (09:00)
[2017-02-26] MEDS: CARVEDILOL 3.125 MG TABLET PO SCH ×2 (09:00→17:00)
[2017-02-26] MEDS: FUROSEMIDE 40 MG TABLET PO SCH ×2 (09:00→17:00)
[2017-02-26] MEDS ORDERED: VANCOMYCIN 0.75 GM in IV D5W 250 ML IV SCH (09:00)
[2017-02-26] MEDS: FOLIC ACID 1 MG TABLET PO SCH ×3 (09:33→19:06)
[2017-02-26] MEDS: ATORVASTATIN 40 MG TABLET PO SCH (09:33)
[2017-02-26] MEDS: PRAMIPEXOLE DI-HCL 0.25 MG TABLET PO SCH (09:33)
[2017-02-26] MEDS: ASPIRIN 81 MG TAB.CHEW PO SCH (09:34)
[2017-02-26] MEDS: FERROUS SULFATE (325 MG) 325 MG/TAB TABLET PO SCH ×2 (09:34→18:23)
[2017-02-26] MEDS: GABAPENTIN 300 MG CAPSULE PO SCH ×3 (09:34→19:06)
[2017-02-26] MEDS: CALCIUM CARBONATE (1250) 500 MG TABLET PO SCH (09:34)
[2017-02-26] MEDS: POTASSIUM CHLORIDE 20 MEQ TAB.PRT.SR PO SCH ×2 (09:36→18:23)
[2017-02-26] MEDS: PANTOPRAZOLE 40 MG TABLET.DR PO SCH (09:36)
[2017-02-26] MEDS: MUPIROCIN OINT 2% 22 GM TUBE SCH ×2 (09:37→20:22)
[2017-02-26] MEDS: DAKINS QUARTER STRENGTH (0.125%) 480 ML BOTTLE TOP SCH (09:38)
[2017-02-26] MEDS: NYSTATIN TOP POWDER 15 GM BOTTLE TP SCH ×2 (09:38→18:29)
[2017-02-26] MEDS: BOOST FOOD- BERRY 237 ML BOX PO SCH (09:42)
--- NOTE | 2017-02-26 10:37 | NUR ---
RN NOTES DROWSY BUT AROUSABLE; PATIENT REPOSITIONED IN BED; ASSITED WITH MEAL; NO ACUTE DISTRESS; WILL CONTINUE TO MONITOR.
[2017-02-26] MEDS: BOOST PLUS FOOD-CHOCLATE 237 ML BOX PO SCH ×2 (14:26→18:23)
--- NOTE | 2017-02-26 15:59 | NUR ---
DR. EUBANKS AT BEDSIDE FOR WOUND DEBRIDEMENT, WILL MONITOR PT.
[2017-02-26 16:00] VITALS: BP 93/56
--- NOTE | 2017-02-26 16:15 | NUR ---
PT IN STABLE CONDITION, NO PAIN OR SOB NOTED, TRANSFERRED TO CT OF HEAD.
--- NOTE | 2017-02-26 16:37 | NUR ---
PT BACK FROM CT SCAN IN STABLE CONDITION, WILL MONITOR.
--- NOTE | 2017-02-26 18:00 | NUR ---
RN NOTES PATIENT PULLED UP IN BED FOR DINNER; L BUTTOCK DRSG CDI; DENIES ANY DISCOMFORT AT THIS TIME; WILL ENDORSE TO PM NURSE.
--- NOTE | 2017-02-26 19:30 | NUR ---
RN MS - INITIAL NOTES PATIENT IN BED CURRENTLY ASLEEP. NO S/S OF SOB NOTED. PATIENT CURRENTLY AT 2LNC. PATIENT S/P DEBRIDEMENT BY DR. EUBANKS ON 02/26 FOR LEFT BUTTOCKS. BED IN LOW POSITION AND LOCKED. SIDERAILS X2 UP. CALL LIGHT IS WITHIN REACH. WILL CONTINUE TO MONITOR PATIENT.
[2017-02-26 20:00] VITALS: BP_SYST 117; BP_SYST 122; BP_DIAS 53; BP_DIAS 67
[2017-02-26] MEDS: ENOXAPARIN SODIUM 30 MG/0.3 ML DISP.SYRIN SQ SCH (20:23)
[2017-02-26] MEDS: IV D5/ 0.9% NACL 1,000 ML IV PRN (20:36)
[2017-02-26] MEDS: NORTRIPTYLINE HCL 25 MG CAPSULE PO SCH (21:26)
[2017-02-27] MEDS: CEFTRIAXONE 1 G in IV D5W 50 ML IV SCH (02:01)
[2017-02-27] MEDS: METHADONE HCL 10 MG TABLET PO SCH ×2 (06:36→13:55)
[2017-02-27 08:00] VITALS: BP 107/68
--- NOTE | 2017-02-27 08:00 | NUR ---
MS RN NOTE PT. AWAKE, ALERT AND ORIENTED X3. VERY FORGETFUL. SAME QUESTIONS. DENIED PAIN AND SOB AT THIS TIME. SIDE RAILS UP. CALL LIGHT WITHIN REACH. MONITOR CLOSELY.
[2017-02-27] MEDS: PANTOPRAZOLE 40 MG TABLET.DR PO SCH (08:01)
[2017-02-27] MEDS: ALBUTEROL FS 2.5 MG/3 ML VIAL.NEB NEB SCH (08:21)
[2017-02-27] MEDS: BOOST PLUS FOOD-CHOCLATE 237 ML BOX PO SCH ×3 (08:38→17:21)
[2017-02-27] MEDS: NYSTATIN TOP POWDER 15 GM BOTTLE TP SCH ×2 (08:39→17:19)
[2017-02-27] MEDS: FUROSEMIDE 40 MG TABLET PO SCH ×2 (08:42→17:18)
[2017-02-27] MEDS: CALCIUM CARBONATE (1250) 500 MG TABLET PO SCH (08:42)
[2017-02-27] MEDS: ATORVASTATIN 40 MG TABLET PO SCH (08:42)
[2017-02-27] MEDS: FOLIC ACID 1 MG TABLET PO SCH ×3 (08:42→17:21)
[2017-02-27] MEDS: POTASSIUM CHLORIDE 20 MEQ TAB.PRT.SR PO SCH ×2 (08:42→17:18)
[2017-02-27] MEDS: CARVEDILOL 3.125 MG TABLET PO SCH ×2 (08:43→17:18)
[2017-02-27] MEDS: FERROUS SULFATE (325 MG) 325 MG/TAB TABLET PO SCH ×2 (08:43→17:18)
[2017-02-27] MEDS: LOSARTAN POTASSIUM 25 MG TABLET PO SCH (08:43)
[2017-02-27] MEDS: PRAMIPEXOLE DI-HCL 0.25 MG TABLET PO SCH (08:43)
[2017-02-27] MEDS: GABAPENTIN 300 MG CAPSULE PO SCH ×3 (08:43→17:21)
[2017-02-27] MEDS: ASPIRIN 81 MG TAB.CHEW PO SCH (08:43)
[2017-02-27] MEDS: DAKINS QUARTER STRENGTH (0.125%) 480 ML BOTTLE TOP SCH (09:00)
[2017-02-27] MEDS: MUPIROCIN OINT 2% 22 GM TUBE SCH (09:00)
[2017-02-27 11:49] LABS: BASOPHILS % (AUTO) 0.3 % (0.0-2.0); EOSINOPHILS # (AUTO) 0.2 /CMM (0.0-0.7); EOSINOPHILS % (AUTO) 3.5 % (0.0-6.0); HEMATOCRIT 36 % (33-45); HEMOGLOBIN 11.4 g/dL (11.5-14.8); LYMPHOCYTES # (AUTO) 0.8 /CMM (0.8-4.8); LYMPHOCYTES % (AUTO) 10.7 % (20.0-44.0); MEAN CORPUSCULAR HEMOGLOBIN 31 PG (26.0-33.0); MEAN CORPUSCULAR HGB CONC 32 g/dl (31.0-36.0); MEAN CORPUSCULAR VOLUME 96 fL (82-100); MONOCYTES # (AUTO) 0.8 /CMM (0.1-1.30); MONOCYTES % (AUTO) 11.6 % (2.0-12.0); NEUTROPHILS # (AUTO) 5.3 /CMM (1.8-8.9); NEUTROPHILS % (AUTO) 73.9 % (43.0-81.0); PLATELET COUNT (AUTO) 250 /CMM (150-450); RDW COEFFICIENT OF VARIATION 16.3 (11.5-15.0); RED BLOOD CELL COUNT(AUTO) 3.72 MIL/uL (4.0-5.2); WHITE BLOOD COUNT (AUTO) 7.1 K/uL (4.3-11.0)
[2017-02-27 12:05] LABS: CALCIUM, SERUM 9.4 mg/dL (8.5-10.1); CREATININE 1.1 mg/dL (0.6-1.3); MAGNESIUM 2.1 mg/dL (1.8-2.4); PHOSPHORUS 2.7 mg/dL (2.5-4.9); POTASSIUM 4.4 mmol/L (3.5-5.1)
--- NOTE | 2017-02-27 15:00 | NUR ---
TOOK PICTURES. CHANGED DRESSING.
[2017-02-27 15:49] VITALS: BP 108/72
[2017-02-27 16:00] VITALS: BP 108/72
--- NOTE | 2017-02-27 17:00 | NUR ---
HOSPICE NURSE AT THE BEDSIDE.
[2017-02-27 17:18] VITALS: BP 108/72
--- NOTE | 2017-02-27 18:50 | NUR ---
CLOSING SHIFT PT AWAKE, ALERT AND ORIENTED X3, VERY FORGETFUL. DENIED PAIN AND SOB. WILL TRANSFER TO SNF TONIGHT. SIDE RAILS UP. CALL LIGHT WITHIN REACH. MONITOR CLOSELY.
--- NOTE | 2017-02-27 19:25 | NUR ---
RN NOTES RECEIVED PT AWAKE, HOB ELEVATED, NO SOB, NOT IN DISTRESS , WITH O2 INHALATION AT 2LPM VIA NC AND TOLERATED WELL. PT ALERT AND ORIENTED X2 FORGETFUL WITH PERIODS OF CONFUSION. PT DENIES PAIN AND DISCOMFORT. IV ACCESS ON LEFT WRIST PATENT AND INTACT. VITAL SIGNS STABLE. ALL BELONGINGS COMPLETE AND READY AT BEDSIDE, PT SIGNED THE LIST OF BELONGINGS. PT FOR DISCHARGE WITH HOSPICE TO [facility] [place], AWAITING FOR PROCUREMENT OFFICER.
--- NOTE | 2017-02-27 20:45 | NUR ---
RN NOTES PT WAS PICKED UP BY [facility]. PT AWAKE, ALERT, VERBALLY RESPONSIVE, DENIES ANY PAIN AND DISCOMFORT. VITAL SIGNS STABLE, BP 122/67, HR 79, RR 18, TEMP 97.4, O2SAT 96% AT 2LPM O2 VIA NC. DRESSING ON LEFT BUTTOCKS INTACT, DRY AND CLEAN. SALINE LOCK ON LEFT WRIST REMOVED, NO BLEEDING, PRESSURE DRESSING APPLIED. ALL BELONGINGS COMPLETE AND INVENTORY LIST SIGNED AND SENT WITH THE PT. DISCHARGED IN STABLE CONDITION.
== END 2017-02-27 19:17 | disposition hospice, inpatient (51) | DRG 579 ==
LOC: MED 02-20 00:01
PROVIDERS: ADMIT Nurse Practitioner Acute Care; ATTEND Nurse Practitioner Acute Care
PROC: 0KBP0ZZ Excision of Left Hip Muscle, Open Approach (ICD-10-PCS; principal; 2017-02-21)
PROC: 0KBP0ZZ Excision of Left Hip Muscle, Open Approach (ICD-10-PCS; 2017-02-26)
DX: L89.324 Pressure ulcer of left buttock, stage 4 (principal); R53.2 Functional quadriplegia; I48.92 Unspecified atrial flutter; D68.59 Other primary thrombophilia; I10 Essential (primary) hypertension; I25.10 Atherosclerotic heart disease of native coronary artery without angina pectoris; Z95.1 Presence of aortocoronary bypass graft; E78.5 Hyperlipidemia, unspecified; D50.9 Iron deficiency anemia, unspecified; D69.2 Other nonthrombocytopenic purpura; E16.2 Hypoglycemia, unspecified; F32.9 Major depressive disorder, single episode, unspecified; K21.9 Gastro-esophageal reflux disease without esophagitis; M81.0 Age-related osteoporosis without current pathological fracture; Z87.891 Personal history of nicotine dependence; Z66 Do not resuscitate; Z91.81 History of falling; Z90.49 Acquired absence of other specified parts of digestive tract; L98.8 Other specified disorders of the skin and subcutaneous tissue; S80.12XA Contusion of left lower leg, initial encounter; S80.11XA Contusion of right lower leg, initial encounter; X58.XXXA Exposure to other specified factors, initial encounter; Y93.9 Activity, unspecified; Y92.129 Unspecified place in nursing home as the place of occurrence of the external cause; S81.801A Unspecified open wound, right lower leg, initial encounter; L89.621 Pressure ulcer of left heel, stage 1; I87.2 Venous insufficiency (chronic) (peripheral); I48.2 Chronic atrial fibrillation; F01.50 Vascular dementia, unspecified severity, without behavioral disturbance, psychotic disturbance, mood disturbance, and anxiety; Z51.5 Encounter for palliative care
CPT/HCPCS: 36415; 70450-TC; 73030-TC; 80048-TC; 80061-TC; 80202-TC; 82040-TC; 82306; 82962-TC; 83735-TC; 84100-TC; 84134-TC; 84443-TC; 85025-TC; 87081-TC; 94799-TC; 97001-TC; A6248; A6402; A6403; J0696; J1650; J3370; J3490; J7042; J7050; J7060; Z7610